=== PATIENT | male | born 1980 | race Caucasian/White ===

== ENCOUNTER 2020-05-09 01:29 | Emergency (ER) | payer MEDICAID, SELFPAY ==
[2020-05-09] VITALS (29 sets, daily range): BP systolic 123–155; BP diastolic 74–102; PULSE 58–77; RESP 12–20; TEMP 36.8; O2SAT 97
--- NOTE | ~2020-05-09 | CT_ITS ---
EXAMINATION: CT brain wo con DATE: 05/09/2020 02:17 INDICATION: Head injury. Neurological deficit since falling 10 days ago. History of seizures. TECHNIQUE: Computed tomography (CT) of the head was performed without intravenous contrast. The mA wa s adjusted according to patient size. Iterative reconstruction technique was employed. Exam dose: 60 5.33 mGy-cm total exam DLP. COMPARISON: 04/20/2018 CT brain FINDINGS: An up to 9 mm thick mixed acute and chronic subdural hematoma along the left side of the fa lx. Small left tentorial acute subdural hematoma. No intracranial mass lesion or hemorrhage is detected otherwise. No midline shift or significant mass effect effect is noted other than some effacement of the upper left cerebral cortical sulci secondar y to the subdural hematoma. Nonspecific diminished attenuation cerebral white matter, likely due to chronic small vessel ischemic changes. Mild cerebral atherosclerotic calcification. Normal ventricular size. The orbital contents are unremarkable. Included mastoid air cells and paranasal sinuses are unremarkable. No fracture or bone destruction of the cranial vault. There is an exostosis of the right parietal bon e, benign. 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 Reviewed, dictated and finalized at [facility]. R CENTER TECHNICIAN
--- NOTE | 2020-05-09 01:35 | ECG_ITS ---
Measurements Intervals [place] Rate: 72 P: 12 ME: 160 QRS: -16 QRSD: 89 T: 119 QT: 370 QTc: 405 Interpretive Statements SINUS RHYTHM BORDERLINE R WAVE PROGRESSION, ANTERIOR LEADS ST-T WAVE ABNORMALITY IN HIGH LATERAL LEADS- CONSIDER ISCHEMIA INFERIOR INFARCT, AGE INDETERMINATE BASELINE WANDER- V4-V6 BORDERLINE ECG Electronically Signed On 05-09-2020 7:10:09 [employer]NAGER by Alireza Sandhu D.O.
[2020-05-09 02:13] LABS: Basophils Absolute Auto 0.1 K/mm3 (0.0-0.1); Basophils Percent Auto 0.6 % (0.2-1.2); Eosinophils Absolute Auto 0.2 K/mm3 (0-0.3); Eosinophils Percent Auto 2.8 % (0-4.4); Hematocrit 41.3 % (42.0-52.0); Hemoglobin 14.3 g/dL (14.0-18.0); Immature Granulocyte Absolute 0.01 K/mm3 (0.00-0.031); Immature Granulocyte Percent A 0.1 % (0-0.5); Lymphocytes Absolute Auto 2.11 K/mm3 (0.9-3.2); Lymphocytes Percent Auto 24.6 % (18.3-44.2); Mean Corpuscular HGB Conc 34.6 g/dl (32-36); Mean Corpuscular Hemoglobin 28.9 pg (26-34); Mean Corpuscular Volume 83.6 fl (80-100); Monocytes Absolute Auto 0.5 K/mm3 (0.1-0.6); Monocytes Percent Auto 5.9 % (2.6-8.5); Neutrophils Absolute Auto 5.7 K/mm3 (1.3-6.7); Platelet Count Result 261 k/mm3 (150-375); Red Blood Count 4.94 M/mm3 (4.6-6.20); Red Cell Distribution Width 12.4 % (11.5-14.5); White Blood Count 8.6 K/mm3 (4.5-10.0)
[2020-05-09 02:26] LABS: Alanine Aminotransferase 94 U/L (4-50); Albumin Level 3.7 g/dL (3.5-5.1); Alkaline Phosphatase 575 U/L (38-126); Anion Gap 5 mmol/L (8-16); Aspartate Amino Transferase 42 U/L (17-59); Bilirubin,Total 1.2 mg/dL (0.2-1.3); Blood Urea Nitrogen 16 mg/dL (9-20); Calcium 8.6 mg/dL (8.4-10.2); Carbon Dioxide 28 mmol/L (22-30); Chloride 99 mmol/L (98-107); Estimated CRCL calculation 110 ml/min; Estimated Glomerular Filt Rate > 60; Glucose 207 mg/dL (75-110); Potassium 3.7 mmol/L (3.4-5.0); Sodium 132 mmol/L (137-145)
--- NOTE | 2020-05-09 02:42 | ED.NEUROSD ---
HPI - Neuro Symptoms/Deficit General Chief Complaint: Neuro Symptoms/Deficit Stated Complaint: neurological problem Time Seen by Provider: 05/09/20 01:35 Source: patient Mode of arrival: EMS Limitations: no limitations History of Present Illness HPI Narrative: A 40-year-old male was brought into the emergency department via EMS for a fall and headache. Patient states that he had a fall approximately a week week and a half ago and woke up on the floor. He states he did lose consciousness but estimates he was unconscious for only a minute or so. Patient states that he has been dealing with a mild headache and his biggest complaint is flashing lights and blurry lights in his vision. Related Data Home Medications Medication Instructions Recorded Confirmed amlodipine 10 mg PO DAILY 05/09/20 atorvastatin 10 mg PO HS 05/09/20 carvedilol [Coreg] 25 mg PO BID 05/09/20 levetiracetam [Keppra] 1,000 mg PO BID 05/09/20 lisinopril-hydrochlorothiazide 2 tablet PO DAILY 05/09/20 Allergies Allergy/AdvReac Type Severity Reaction Status Date / Time No Known Allergies Allergy Unverified 04/20/18 20:09 Review of Systems Review of Systems: Narrative: CONSTITUTIONAL: Denies fever, chills, or sweats. EYES: Denies visual changes, redness, or discharge. ENT: Denies rhinorrhea, congestion, sore throat, or otalgia. CARDIOVASCULAR: Denies chest pain, palpitations, or edema. RESPIRATORY: Denies cough or dyspnea. GASTROINTESTINAL: Denies abdominal pain, nausea, vomiting, or diarrhea. GENITOURINARY: Denies dysuria or hematuria. SKIN: Denies rash or itching. MUSCULOSKELETAL: Denies back pain, joint pain, or myalgia. NEUROLOGIC: Denies numbness, dizziness, or weakness. Endorses headache and flashing lights in his vision PSYCHIATRIC: Denies anxiety or depression. Exam Narrative: Exam Narrative: GENERAL: Well-appearing, well-nourished, and in no acute distress. HEAD: Normocephalic, atraumatic. EYES: PERRLA and EOMI. ENT: Nares clear, no rhinorrhea or epistaxis. Mucous membranes moist. NECK: Supple. No adenopathy or masses. No carotid bruits or JVD CHEST: Clear to auscultation. No respiratory distress. No wheezes rales or rhonchi HEART: Regular rate and rhythm. No murmur heard. Normal peripheral pulses. ABDOMEN: Soft, nontender, nondistended, normal active bowel sounds. EXTREMITIES: Normal range of motion. No edema. SKIN: Warm, dry, no rash. NEURO: No focal deficits. Alert and oriented x3. PSYCH: Normal mood and affect. Course Consultations Consultation #1: [facility] called to inform me that the patient unfortunately has an acute on chronic subdural bleed. Time: 02:37 Consultation #2: Called [facility] for a transfer for the patient. Spoke with Bill on the transfer line, he is speaking to the ED and neurology and will call me back. Time: 02:46 Consultation #3: Spoke with Red nazario, Dr. Goode, of neurosurgery. He agrees to accept the patient for admission there to our neurosurgery service. Awaiting notification of available bed. Time: 03:20 Vital Signs Vital signs: Vital Signs Temperature 36.8 C 05/09/20 01:29 Pulse Rate 73 05/09/20 01:29 Respiratory Rate 12 05/09/20 01:29 Blood Pressure 155/102 H 05/09/20 01:29 Pulse Oximetry 97 05/09/20 01:29 Temperature 36.8 C 05/09/20 01:29 Pulse Rate 71 05/09/20 03:00 Respiratory Rate 14 05/09/20 03:00 Blood Pressure 123/91 H 05/09/20 02:01 Pulse Oximetry 97 05/09/20 01:29 Transfer Transfered to: [facility] Transportation: ALS MDM - Neuro Symptoms/Deficit MDM Narrative Medical decision making narrative: A 40-year-old male in brief came into the emergency department with pain and symptoms after falling and hitting his head. He notes that he has also been seen spots and lights in his vision. Patient states that his has not been getting any better and perhaps has been getting somewhat worse. On evaluation patient did have a
--- NOTE | 2020-05-09 04:45 | PC.NURSE ---
called [facility] to transport patient. ETA [id number]
== END 2020-05-09 05:57 | disposition short-term general hospital (02) ==
PROVIDERS: Emergency Provider Emergency Medicine; PCP Family Medicine
DX: S06.5X1A Traumatic subdural hemorrhage with loss of consciousness of 30 minutes or less, initial encounter (principal); I62.03 Nontraumatic chronic subdural hemorrhage; W19.XXXA Unspecified fall, initial encounter
CPT/HCPCS: 36415; 70450; 80053; 85025; 93005; 99291